=== PATIENT | male | born 1970 | race Caucasian/White ===

== ENCOUNTER 2018-07-26 11:52 | Inpatient (IN) | payer BC ==
[~2018-07-26] VITALS: Ht 185.4 cm; Wt 106.8 kg
--- NOTE | ~2018-07-26 | MORECARE ---
CASE MANAGEMENT DISCHARGE SUMMARY PATIENT: KIEL HAAS UNIT: [id number] ADM DATE: 07/26/18 AGE: 48 : [birth year] SEX: M ROOM/BED: D.2209 AUTHOR: THOMAS,DOC PHYSICIAN: REFERRING PHYSICIAN: VINITA VEGA MD DATE OF SERVICE: 07/28/18 Discharge Plan Patient Name: KIEL HAAS Facility: [facility]:[place] : 1970 Planned Disposition: Home Anticipated Discharge Date: 07/28/18 Discharge Date: Expected LOS: 2 Initial Reviewer: [email or web address] Initial Review Date: 07/28/2018 Generated: 07/28/18 11:19 am Comments DCP- Discharge Planning Updated by [email or web address]: Serina Calderon on 07/28/18 9:[address] Patient Name: KIEL HAAS Admission Status: ER Accout number: [id number] Admission Date: 07-26-2018 : 1970 Admission Diagnosis:DISPLACED BIMALLEOLAR FRACTURE OF LEFT LOWER LEG, INIT Attending: VINITA VEGA Current LOS: 2 Anticipated DC Date: 07-28-2018 Planned Disposition: Home Primary Insurance: [employer] OUT OF STATE Discharge Planning Comments: CM met with patient to discuss discharge planning, he is alone in the room. He states he lives with a friend, Kareem Whaley. States his cousin will pick him up today for discharge. States he only needs a walker. He does not have a DME preference. I called [facility] to order a walker and faxed order and face sheet. He states he will pick the walker up. He knows where [facility] is. No other needs voiced. Declines [facility]. CM will continue to follow and assist with discharge planning/needs. Customer Experience Professional: Serina Calderon DCPIA - Discharge Planning Initial Assessment Updated by [email or web address]: Serina Calderon on 07/28/18 10:13 am * Is the patient Alert and Oriented? Yes * How many steps to enter\exit or inside your home? 0/0 * PCP Dr[facility] Elton Kaminski [facility] * Pharmacy [facility] in [place] * Preadmission Environment Home with Family * ADLs Independent * Equipment None * List name and contact numbers for known caregivers / representatives who currently or will assist patient after discharge: Kareem Whaley - [phone] * Verbal permission to speak to the caregivers and representatives has been obtained from the patient. Yes * Community resources currently utilized None * Additional services required to return to the preadmission environment? Yes * Can the patient safely return to the preadmission environment? Yes * Has this patient been hospitalized within the prior 30 days at any hospital? No External Providers External Provider: [facility] Next Contact Date: Service Request Date: Service Type: Resolution: Reviewer: Comments: Patient Name: KIEL HAAS Page 32198 at 1019 All edits/amendments must be made on the electronic document DICTATION DATE: 07/28/18 1018 GOLF CART ASSEMBLER: JUAN PABLO 07/28/18 1018 RPT#: [id number] DC DATE: STATUS: ADM IN [facility] [address] [place] [address] END OF REPORT
--- NOTE | ~2018-07-26 | OP ---
PATIENT NAME: KIEL HAAS MEDICAL RECORD: [id number] :[birth year] LOCATION:D.MS [id number] ADMISSION DATE:07/26/18 SURGEON: VINITA VEGA MD DATE OF OPERATION: 07/27/2018 PREOPERATIVE DIAGNOSIS: Bimalleolar ankle fracture of the left ankle. POSTOPERATIVE DIAGNOSIS: Bimalleolar ankle fracture of the left ankle. PROCEDURE: Open reduction and internal fixation of left bimalleolar ankle fracture. SURGEON: Vinita Vega MD ANESTHESIA: General. INTRAOPERATIVE COMPLICATIONS: None. SUMMARY OF PATHOLOGIC FINDINGS: Consistent with preop diagnosis. The patient had minimally displaced medial malleolus with a significantly displaced lateral malleolar ankle fracture. OPERATIVE SUMMARY IN DETAIL: After obtaining the appropriate preoperative orthopedic surgery consent as well as anesthetic consultation, evaluation, and clearance, the patient was brought to the operating room and placed on the operating table in the supine position. After general laryngeal mask was administered, tourniquet was placed about the proximal aspect of the left lower extremity. The left lower extremity was then prepped and draped in routine sterile fashion. The leg was elevated, exsanguinated, and tourniquet was inflated to 350 mmHg. Routine fluoroscopy was brought in. Reduction was performed under fluoroscopic guidance. An incision was then made in line with the fibula and taken down to the level of periosteum. The fracture was identified and all fracture hematoma was removed. Fracture reduction was then followed by placement of a provisional K-wire. Plate was then put into place, and under fluoroscopic guidance, serial and sequential drill and fill technique was utilized with both combination of compression and locking screws. Fluoroscopy was brought back in to assure the patient's fibula was reduced in anatomic fashion on both AP, lateral, and oblique planes. Next, attention was turned to the medial malleolus. Under fluoroscopic guidance, a guidewire for the 3.0 double compression screw was placed into the medial malleolus at the inferior colliculus. This was then seated again on fluoroscopy. This resulted in excellent anatomic fixation. I did not think the inferior collicular piece was big enough for 2 screws. Given the compression, I think it provided both compression and rotation stability. Having completed this, wound was irrigated and closed in usual fashion. Sterile dressings were applied. Tourniquet was deflated. Posterior L&U splint was put into place. The patient was awakened and taken to recovery room in stable condition. All final needle and sponge counts were correct. TRANSINT:[id number] Voice Confirmation ID: [id number] DOCUMENT ID: [id number] OPERATIVE REPORT [id number] KIEL HAAS MD, VINITA HINES at 0856 CC: [id number] DICTATION DATE: 07/27/18916 COST MANAGER: 07/27/18 1441 ADM IN [place] [id number] [place] [address]
--- NOTE | ~2018-07-26 | MORECARE ---
CASE MANAGEMENT DISCHARGE SUMMARY PATIENT: KIEL HAAS UNIT: [id number] ADM DATE: 07/26/18 AGE: 48 : [birth year] SEX: M ROOM/BED: D.2209 AUTHOR: THOMAS,DOC PHYSICIAN: REFERRING PHYSICIAN: VINITA VEGA MD DATE OF SERVICE: 07/28/18 Discharge Plan Patient Name: KIEL HAAS Facility: [facility]:[place] : 1970 Planned Disposition: Home Anticipated Discharge Date: 07/28/18 Discharge Date: 07/28/2018 Expected LOS: 2 Initial Reviewer: [email or web address] Initial Review Date: 07/28/2018 Generated: 07/28/18 3:52 pm Comments DCP- Discharge Planning Updated by [email or web address]: Serina Calderon on 07/28/18 9:[address] Patient Name: KIEL HAAS Admission Status: ER Accout number: [id number] Admission Date: 07-26-2018 : 1970 Admission Diagnosis:DISPLACED BIMALLEOLAR FRACTURE OF LEFT LOWER LEG, INIT Attending: VINITA VEGA Current LOS: 2 Anticipated DC Date: 07-28-2018 Planned Disposition: Home Primary Insurance: [employer] OUT OF STATE Discharge Planning Comments: CM met with patient to discuss discharge planning, he is alone in the room. He states he lives with a friend, Kareem Whaley. States his cousin will pick him up today for discharge. States he only needs a walker. He does not have a DME preference. I called [facility] to order a walker and faxed order and face sheet. He states he will pick the walker up. He knows where [facility]. No other needs voiced. Declines [facility]. CM will continue to follow and assist with discharge planning/needs. Invoice Machine Operator: Serina Calderon DCPIA - Discharge Planning Initial Assessment Updated by [email or web address]: Serina Calderon on 07/28/18 10:13 am * Is the patient Alert and Oriented? Yes * How many steps to enter\exit or inside your home? 0/0 * PCP Dr. Elton Kaminski [facility] * Pharmacy [facility] in [place] * Preadmission Environment Home with Family * ADLs Independent * Equipment None * List name and contact numbers for known caregivers / representatives who currently or will assist patient after discharge: Kareem Whaley - [phone] * Verbal permission to speak to the caregivers and representatives has been obtained from the patient. Yes * Community resources currently utilized None * Additional services required to return to the preadmission environment? Yes * Can the patient safely return to the preadmission environment? Yes * Has this patient been hospitalized within the prior 30 days at any hospital? No Last DP export: 07/28/18 9:19 Patient Name: KIEL HAAS Page 55517 at 1452 All edits/amendments must be made on the electronic document DICTATION DATE: 07/28/181451 SPECIAL EVENTS ASSISTANT: JUAN PABLO 07/28/181451 RPT#: [id number] DC DATE:07/28/18 STATUS: DIS IN [facility] [address] [place] [address] END OF REPORT
[2018-07-26] MEDS ORDERED: TOPROL XL100 MG PO (11:57)
[2018-07-26] MEDS ORDERED: BENICAR20 MG PO (11:58)
[2018-07-26] MEDS ORDERED: CRESTOR20 MG PO (11:58)
[2018-07-26] MEDS ORDERED: ARMOUR THYROID300 MG PO (11:58)
[2018-07-26] MEDS ORDERED: CLARITIN 10 MG10 MG PO (11:59)
[2018-07-26] MEDS ORDERED: CYMBALTA30 MG PO (12:23)
[2018-07-26 13:00] VITALS: BP 89/48
[2018-07-26 13:03] LABS: BASOPHILS 0.4 % (0-2); EOSINOPHILS 0.7 % (0-7); HEMATOCRIT 39.8 % (42.0-54.0); HEMOGLOBIN 13.7 g/dL (13.5-17.5); IMMATURE GRANULOCYTES 0.2 % (0-5); LYMPHOCYTES 37.8 % (15-50); MCH 31.9 pg (26.0-34.0); MCHC 34.4 g/dL (31.0-37.0); MCV 92.8 fL (80.0-100.0); MEAN PLATELET VOLUME 10.5 fL (7.4-10.4); MONOCYTES 11.8 % (2-11); NEUTROPHILS 49.1 % (40-80); PLATELET COUNT 119 10x3/uL (130-400); RBC 4.29 10x6/uL (4.20-6.10); RDW 13.4 % (11.5-14.5); WBC 5.4 10x3/uL (4.8-10.8)
[2018-07-26 13:09] LABS: INR 1.08 (0.85-1.17); PROTIME 13.5 SECONDS (11.6-15.0)
[2018-07-26 13:34] LABS: ANION GAP 18.2 mmol/L (8-16); CALCIUM 8.7 mg/dL (8.5-10.1); CARBON DIOXIDE 25.5 mmol/L (21.0-32.0); CREATININE - SERUM 3.2 mg/dL (0.6-1.3); POTASSIUM - SERUM 3.7 mmol/L (3.5-5.1); THYROID STIMULATING HORMONE 13.69 uIU/mL (0.36-3.74)
[2018-07-26] MEDS ORDERED: TRIBENZOR 40-11 EAC1 PO (14:25)
[2018-07-26] MEDS ORDERED: CYMBALTA60 MG PO (14:27)
[2018-07-26] MEDS ORDERED: BYSTOLIC20 MG PO (14:29)
[2018-07-26 17:32] VITALS: BP 95/56
[2018-07-26 18:33] VITALS: BP 95/56; Ht 185.4 cm; Wt 106.8 kg
[2018-07-26] MEDS ORDERED: NEXIUM20 MG PO (19:26)
[2018-07-26 20:00] VITALS: BP 124/71
[2018-07-27] VITALS (7 sets, daily range): BP systolic 99–148; BP diastolic 61–88
[2018-07-27 07:01] LABS: ANION GAP 18.4 mmol/L (8-16); CALCIUM 8.4 mg/dL (8.5-10.1); CARBON DIOXIDE 27.4 mmol/L (21.0-32.0); POTASSIUM - SERUM 3.8 mmol/L (3.5-5.1)
[2018-07-28] VITALS: BP 113/64
[2018-07-28 04:00] VITALS: BP 104/53
[2018-07-28] MEDS ORDERED: ELIQUIS2.5 MG PO (07:51)
[2018-07-28] MEDS ORDERED: DEMEROL100 MG PO (07:51)
[2018-07-28 09:21] VITALS: BP 137/85
== END 2018-07-28 11:46 | disposition home or self-care (01) | DRG 494 ==
LOC: D.ER 11:52 → D.MS 12:52
PROVIDERS: Emergency Medicine; Orthopaedic Surgery
PROC: 0QSH0ZZ Reposition Left Tibia, Open Approach (ICD-10-PCS; 2018-07-27)
PROC: 0QSK0ZZ Reposition Left Fibula, Open Approach (ICD-10-PCS; principal; 2018-07-27 08:00)
DX: S82.842A Displaced bimalleolar fracture of left lower leg, initial encounter for closed fracture (principal); W01.0XXA Fall on same level from slipping, tripping and stumbling without subsequent striking against object, initial encounter; I10 Essential (primary) hypertension